=== PATIENT | male | born 1960 | race African-American/Black ===

== ENCOUNTER 2016-11-21 20:56 | Inpatient (IN) | payer OTHER ==
[2016-11-21 22:33] VITALS: BMI 26.4
--- NOTE | 2016-11-21 23:11 | HP ---
CIWA Score - CIWA Score Nausea/Vomitin Muscle Tremors: 4-Moderate,w/Arms Extend Anxiety: 4-Mod. Anxious/Guarded Agitation: 4-Moderately Restless Paroxysmal Sweats: 1-Minimal Palms Moist Orientation: 0-Oriented Tacttile Disturbances: 0-None Auditory Disturbances: 0-None Visual Disturbances: 2-Mild Sensitivity Headache: 0-None Present CIWA-Ar Total Score: 18 Admission ROS BHS - HPI Chief Complaint: SEEKING DETOX FOR ALCOHOLISM Allergies/Adverse Reactions: Allergies Allergy/AdvReac Type Severity Reaction Status Date / Time influenza virus vaccine, Allergy Unknown passed out Verified 03/02/16 14:54 specific [Influenza Virus Vacc,Specific] pneumococcal 23-valent Allergy Unknown passed out Verified 03/02/16 14:54 polysacchari [From Pneumovax 23] haloperidol [From Haldol] AdvReac STIFFNESS Verified 03/02/16 14:54 TURKEY Allergy Severe Itching Uncoded 03/02/16 14:54 FLU SHOT Allergy Unknown passed out Uncoded 03/02/16 14:54 History of Present Illness: 55 [place] MALE WITH ALCOHOLISM ADMITTED FOR DETOX TXMENT. CLIENT IS HYPERTENSIVE. HE IS PRESENTLY ASYMPTOMATIC. HAS BEEN W/O MEDS. SELF REFERRED. STATES LAST DETOX MONTHS AGO. REPORTS WAS SEEN OVERNIGHT IN [facility] [place] FOR ALCOHOLISM AND DEPRESSION. DENIES AND SIGNIFICANT PERIOD OF CLEAN TIME. Exam Limitations: No Limitations - Ebola screening Have you traveled outside of the country in the last 21 days: No (N) Have you had contact with anyone from an Ebola affected area: No Have you been sick,other than usual withdrawal symptoms: No Do you have a fever: No - Review of Systems Constitutional: Chills, Loss of Appetite, Malaise, Night Sweats, Changes in sleep EENT: reports: Dental Problems (EDENTULOUS) Respiratory: reports: No Symptoms reported Cardiac: reports: No Symptoms Reported GI: reports: Diarrhea, Poor Appetite, Poor Fluid Intake, Abdominal cramping : reports: No Symptoms Reported Musculoskeletal: reports: Back Pain Integumentary: reports: No Symptoms Reported Neuro: reports: Seizure (2/2 HEAD TRAUMA) Endocrine: reports: No Symptoms Reported Hematology: reports: No Symptoms Reported Psychiatric: reports: Anxious, Depressed (DENIES SI/HI) Other Systems: Reviewed and Negative Patient History - Patient Medical History Hx Anemia: Yes Hx Asthma: No Hx Chronic Obstructive Pulmonary Disease (COPD): No Hx Cancer: No Hx Cardiac Disorders: No Hx Congestive Heart Failure: No Hx Hypertension: Yes (on medications) Hx Hypercholesterolemia: No Hx Pacemaker: No HX Cerebrovascular Accident: No Hx Seizures: Yes (8 mths ago , head injury) Hx Dementia: No Hx Diabetes: No Hx Gastrointestinal Disorders: No Hx Liver Disease: No Hx Genitourinary Disorders: No Hx Sexually Transmitted Disorders: No Hx Renal Disease (ESRD): No Hx Thyroid Disease: No Hx Human Immunodeficiency Virus (HIV): No Hx Hepatitis C: No Hx Depression: Yes Hx Suicide Attempt: No Hx Bipolar Disorder: Yes Hx Schizophrenia: Yes Other Medical History: DENIES - Patient Surgical History Past Surgical History: Yes Hx Neurologic Surgery: No Hx Cataract Extraction: No Hx Cardiac Surgery: No Hx Lung Surgery: No Hx Breast Surgery: No Hx Breast Biopsy: No Hx Abdominal Surgery: No Hx Appendectomy: No Hx Cholecystectomy: No Hx Genitourinary Surgery: No Hx Section: No Hx Orthopedic Surgery: Yes (R mandible sx in 08/08) Other Surgical History: SURGERY ON MANDIBLE IN 2013 Anesthesia Reaction: No - PPD History Previous Implant?: Yes Documented Results: Negative w/proof Implanted On Prior [facility] Admission?: Yes Date: 09/30/15 Results: 0 mm PPD to be Administered?: Yes - Smoking Cessation Smoking history: Current every day smoker Have you smoked in the past 12 months: Yes Aproximately how many cigarettes per day: 10 Cigars Per Day: 0 Hx Chewing Tobacco Use: No Initiated information on smoking cessation: Yes 'Breaking Loose' booklet given: 11/21/16 - Substance & Tx. History Hx Alcohol Use: Yes Hx Substance Use: No Substance Use Type: Alcohol Hx Substance Use Treatment: No ([facility]) - Substances Abused VODKA Route: Oral Frequency: Daily Amount used: 2 PINTS Age of first use: 11 Date of Last Use: 11/21/16 Family Disease History - Family Disease History Family Disease History: Other: Mother (ETOH DEPENDENT AND STOPPED NOW) Admission Physical Exam S - Vital Signs Vital Signs: Vital Signs - 24 hr 11/21/16 22:22 Temperature 96.3 F L Pulse Rate 71 Respiratory 18 Rate Blood Pressure 182/98 - Physical General Appearance: Yes: Disheveled, Mild Distress, Intoxicated, Tremorous, Anxious HEENTM: Yes: EOMI, Normal ENT Inspection, Normocephalic, Normal Voice, GELY, Pharynx Normal Respiratory: Yes: Chest Non-Tender, Lungs Clear, Normal Breath Sounds, No Respiratory Distress, No Accessory Muscle Use Neck: Yes: No masses,lesions,Nodules, Supple, Trachea in good position Breast: Yes: Breast Exam Deferred Cardiology: Yes: Regular Rhythm, Regular Rate, S1, S2 Abdominal: Yes: Normal Bowel Sounds, Non Tender, Soft, Protuberent Genitourinary: Yes: Within Normal Limits Back: Yes: Normal Inspection Musculoskeletal: Yes: full range of Motion, Gait Steady Extremities: Yes: Normal Range of Motion, Non-Tender, Tremors Neurological: Yes: Fully Oriented, Alert Integumentary: Yes: Dry, Warm Lymphatic: Yes: Within Normal Limits - Diagnostic (1) Alcohol dependence with uncomplicated withdrawal Current Visit: Yes Status: Chronic (2) Nicotine dependence Current Visit: Yes Status: Chronic Qualifiers: Nicotine product type: cigarettes Substance use status: uncomplicated Qualified Code(s): F17.210 - Nicotine dependence, cigarettes, uncomplicated (3) Essential hypertension Current Visit: Yes Status: Chronic (4) Seizure disorder Current Visit: Yes Status: Chronic Cleared for Admission [facility] - Detox or Rehab [facility] Level of Care: Medically Managed Detox Regimen/Protocol: Librium [facility] Breath Alcohol Content Breath Alcohol Content: 0.111 Urine Drug Screen - Results Drug Screen Negative: No Urine Drug Screen Results: BAR-Barbiturates, BZO-Benzodiazepines
[2016-11-21] MEDS ORDERED: chlordiazePOXIDE HCL 25 MG CAPSULE PO PRN (23:21)
[2016-11-21] MEDS ORDERED: guaiFENesin/D-METHORPHAN HB 10 ML UNIT-DOSE CUPS PO PRN (23:21)
[2016-11-21] MEDS ORDERED: NICOTINE POLACRILEX 2 MG GUM BC PRN (23:21)
[2016-11-21] MEDS ORDERED: P-EPHED 60MG/TRIPROLIDI 2.5MG TABLET PO PRN (23:21)
[2016-11-21] MEDS ORDERED: MENTHOL/PHENOL 1 EACH UD MM PRN (23:21)
[2016-11-21] MEDS ORDERED: MAGNESIUM HYDROX 2400MG/30ML ORAL SUSPENSION 30 ML CUP PO PRN (23:21)
[2016-11-21] MEDS ORDERED: diphenhydrAMINE HCL 50 MG CAPSULE PO PRN (23:21)
[2016-11-21] MEDS ORDERED: IBUPROFEN 400 MG TABLET (FP) PO PRN (23:21)
[2016-11-21] MEDS ORDERED: ACETAMINOPHEN 325 MG TABLET (FP) PO PRN (23:21)
[2016-11-21] MEDS ORDERED: MAG HYDROX/AL HYDROX/SIMETH 30 ML UNIT-DOSE CUP PO PRN (23:21)
[2016-11-21] MEDS ORDERED: hydrOXYzine PAMOATE 50 MG CAPSULE (FP) PO PRN (23:21)
[2016-11-21] MEDS ORDERED: MAGNESIUM CITRATE 300 ML BOTTLE PO PRN (23:21)
[2016-11-21] MEDS ORDERED: LOPERAMIDE HCL 2 MG CAPSULE PO PRN (23:21)
[2016-11-21] MEDS ORDERED: amLODIPine BESYLATE 10 MG TABLET (FP) PO SCH (23:30)
[2016-11-21] MEDS: chlordiazePOXIDE HCL 25 MG CAPSULE PO SCH (23:52)
[2016-11-22] MEDS: chlordiazePOXIDE HCL 25 MG CAPSULE PO SCH (05:54)
[2016-11-22] MEDS ORDERED: PHENYTOIN NA EXTENDED 100 MG CAPSULE (FP) PO SCH (06:00)
[2016-11-22 06:34] VITALS: PULSE 60
[2016-11-22 09:31] VITALS: BP 147/86; TEMP 97.8
[2016-11-22] MEDS ORDERED: PRENATAL VITAMINS W/ FOLIC ACID TABLET (FP) PO SCH (10:00)
[2016-11-22 10:16] LABS: MCH 29.7 pg (25.7-33.7); MCHC 33.3 g/dl (32.0-35.9); MEAN CELL VOLUME 89.3 fl (80-96); MEAN PLT VOLUME 9.9 fl (7.5-11.1); PLATELET COUNT 188 K/MM3 (134-434); RDW 16.3 % (11.9-15.9); WHITE BLOOD COUNT 4.7 K/mm3 (4.0-10.0)
[2016-11-22 10:43] LABS: ALBUMIN 3.5 g/dl (3.4-5.0); ALK PHOS 74 U/L (45-117); ANION GAP 7 (8-16); BILIRUBIN,TOTAL 0.3 mg/dL (0.2-1.0); CALCIUM 8.7 mg/dL (8.5-10.1); CO2 27 mmol/L (21-32); COCKROFT - GAULT 105.64; GLUCOSE,RANDOM 90 mg/dL (74-106); SGOT/AST 99 U/L (15-37); SGPT/ALT 94 U/L (12-78); TOT PROT 7.1 g/dl (6.4-8.2)
--- NOTE | 2016-11-22 10:48 | CONSULT ---
[facility] Psychiatric Consult - Data Date of interview: 11/22/16 Admission source: [facility] Identifying data: Not available for psychiatric interview.Left unit prior to consult.See staff's notes for details.
--- NOTE | 2016-11-22 11:57 | DS ---
[facility] Detox Discharge Summary Admission Date: 11/21/16 Discharge Date: 11/22/16 - History Present History: Alcohol Dependence Pertinent Past History: HTN Seizure disorder - Physical Exam Results Vital Signs: Vital Signs Temperature 97.8 F 11/22/16 09:26 Pulse Rate 60 11/22/16 09:26 Respiratory Rate 18 11/22/16 09:26 Blood Pressure 147/86 11/22/16 09:26 O2 Sat by Pulse Oximetry (%) Pertinent Admission Physical Exam Findings: Withdrawal sx. Laboratory Results - last 24 hr 11/22/16 11/22/16 07:00 07:00 WBC 4.7 D RBC 3.85 L Hgb 11.4 L Hct 34.4 L MCV 89.3 MCHC 33.3 RDW 16.3 H Plt Count 188 MPV 9.9 D Sodium 140 Potassium 3.9 Chloride 106 Carbon Dioxide 27 Anion Gap 7 L BUN 21 H D Creatinine 1.0 Creat Clearance w eGFR > 60 Random Glucose 90 Calcium 8.7 Total Bilirubin 0.3 D AST 99 H D ALT 94 H D Alkaline Phosphatase 74 Total Protein 7.1 Albumin 3.5 labs noted - Treatment Patient has Accepted a Rehab Referral to: [facility] - Medication Discharge Medications: Ambulatory Orders Phenytoin Na Extended [Dilantin -] 100 mg PO TID 08/03/14 Amlodipine Besylate [Norvasc -] 10 mg PO DAILY 03/25/15 Olanzapine [Zyprexa] 20 mg PO BID 03/25/15 Trazodone HCl [Desyrel -] 300 mg PO HS 03/02/16 Trazodone HCl 100 mg PO HS #30 tablet 03/03/16 - Diagnosis (1) Alcohol dependence with uncomplicated withdrawal Current Visit: Yes Status: Chronic (2) Essential hypertension Current Visit: Yes Status: Chronic (3) Nicotine dependence Current Visit: Yes Status: Chronic Qualifiers: Nicotine product type: cigarettes Substance use status: uncomplicated Qualified Code(s): F17.210 - Nicotine dependence, cigarettes, uncomplicated (4) Seizure disorder Current Visit: Yes Status: Chronic (5) Paranoid schizophrenia Current Visit: Yes Status: Chronic - AMA Did Patient Leave Against Medical Advice: Yes (This pt. has signrd out AMA most of the time)
--- NOTE | 2016-11-22 11:59 | EKG ---
Test Reason : Blood Pressure : / mmHG Vent. Rate : 055 BPM Atrial Rate : 055 BPM P-R Int : 160 ms QRS Dur : 098 ms QT Int : 416 ms P-R-T Axes : 069 065 065 degrees QTc Int : 397 ms SINUS BRADYCARDIA MODERATE VOLTAGE CRITERIA FOR LVH, MAY BE NORMAL VARIANT BORDERLINE ECG NO PREVIOUS ECGS AVAILABLE Confirmed by MACKENZIE HENRY MD ([id number]) on 11/22/2016 11:58:46 AM Referred By: Confirmed By:MACKENZIE HENRY MD
[2016-11-22] MEDS ORDERED: THIAMINE HCL 100 MG TABLET (FP) PO SCH (22:00)
[2016-11-22] MEDS ORDERED: chlordiazePOXIDE HCL 25 MG CAPSULE PO SCH (23:00)
[2016-11-23] MEDS ORDERED: chlordiazePOXIDE 5 MG CAPSULE PO SCH (23:00)
[2016-11-24] MEDS ORDERED: chlordiazePOXIDE HCL 10 MG CAPSULE PO SCH (23:00)
== END 2016-11-22 10:20 | disposition left against medical advice (07) | DRG 894 ==
LOC: YASAS 20:56 → Y3N 23:00
PROVIDERS: ADMIT Internal Medicine; ATTEND Internal Medicine
PROC: HZ2ZZZZ Detoxification Services for Substance Abuse Treatment (ICD-10-PCS; principal; 2016-11-21)
DX: F10.230 Alcohol dependence with withdrawal, uncomplicated (principal); F20.0 Paranoid schizophrenia; F17.210 Nicotine dependence, cigarettes, uncomplicated; I10 Essential (primary) hypertension; G40.909 Epilepsy, unspecified, not intractable, without status epilepticus; D64.9 Anemia, unspecified
CPT/HCPCS: 36415; 80053; 80185; 85027; 86593; 86803; 87522; 93005; 93010

== ENCOUNTER 2017-01-18 16:26 | Inpatient (IN) | payer OTHER ==
[2017-01-18 17:02] VITALS: BMI 25.0
--- NOTE | 2017-01-18 21:25 | HP ---
CIWA Score - CIWA Score Nausea/Vomitin-Mild Nausea/No Vomiting Muscle Tremors: 3 Anxiety: 3 Agitation: 3 Paroxysmal Sweats: 2 Orientation: 1-Uncertain about Date Tacttile Disturbances: 0-None Auditory Disturbances: 0-None Visual Disturbances: 1-Very Mild Sensitivity Headache: 1-Very Mild CIWA-Ar Total Score: 15 Admission ROS BHS - HPI Chief Complaint: WITHDRAWAL SYMPTOMS Allergies/Adverse Reactions: Allergies Allergy/AdvReac Type Severity Reaction Status Date / Time influenza virus vaccine, Allergy Unknown passed out Verified 01/18/17 18:12 specific [Influenza Virus Vacc,Specific] pneumococcal 23-valent Allergy Unknown passed out Verified 01/18/17 18:12 polysacchari [From Pneumovax 23] haloperidol [From Haldol] AdvReac STIFFNESS Verified 01/18/17 18:12 TURKEY Allergy Severe Itching Uncoded 01/18/17 18:12 FLU SHOT Allergy Unknown passed out Uncoded 01/18/17 18:12 History of Present Illness: 56 y.o. man with an extensive history of alcohol dependence is here seeking detox. He was last here in 10/2016 but left AMA. He reports he does not have a significant period of sobriety. Exam Limitations: Intoxication - Ebola screening Have you traveled outside of the country in the last 21 days: No Have you been sick,other than usual withdrawal symptoms: Yes - Review of Systems Constitutional: Loss of Appetite, Changes in sleep, Unintentional Wgt. Loss EENT: reports: Blurred Vision Respiratory: reports: Shortness of Breath Cardiac: reports: No Symptoms Reported GI: reports: Diarrhea, Poor Appetite, Abdominal cramping : reports: No Symptoms Reported Musculoskeletal: reports: Back Pain, Joint Pain (Left knee) Integumentary: reports: No Symptoms Reported Neuro: reports: Seizure (Last sz was in 2009; reports d/t cerebral trauma), Tremors Endocrine: reports: No Symptoms Reported Hematology: reports: Anemia (ADA) Psychiatric: reports: Depressed, other (Insomnia) Other Systems: Reviewed and Negative Patient History - Patient Medical History Hx Anemia: Yes Hx Asthma: No Hx Chronic Obstructive Pulmonary Disease (COPD): No Hx Cancer: No Hx Cardiac Disorders: No Hx Congestive Heart Failure: No Hx Hypertension: Yes (on medications) Hx Hypercholesterolemia: No Hx Pacemaker: No HX Cerebrovascular Accident: No Hx Seizures: Yes (7 years ago , head injury) Hx Dementia: No Hx Diabetes: No Hx Gastrointestinal Disorders: No Hx Liver Disease: No Hx Genitourinary Disorders: No Hx Sexually Transmitted Disorders: No Hx Renal Disease (ESRD): No Hx Thyroid Disease: No Hx Human Immunodeficiency Virus (HIV): No Hx Hepatitis C: No Hx Depression: Yes Hx Suicide Attempt: No Hx Bipolar Disorder: Yes Hx Schizophrenia: Yes - Patient Surgical History Past Surgical History: Yes Hx Neurologic Surgery: No Hx Cataract Extraction: No Hx Cardiac Surgery: No Hx Lung Surgery: No Hx Breast Surgery: No Hx Breast Biopsy: No Hx Abdominal Surgery: No Hx Appendectomy: No Hx Cholecystectomy: No Hx Genitourinary Surgery: No Hx Section: No Hx Orthopedic Surgery: Yes (R mandible sx in 08/08) Other Surgical History: SURGERY ON MANDIBLE IN 2013 Anesthesia Reaction: No - PPD History Previous Implant?: Yes Documented Results: Negative w/proof Date: 11/23/16 Results: 0 mm PPD to be Administered?: No - Reproductive History Patient is a Female of Child Bearing Age (11 -55 yrs old): No - Smoking Cessation Smoking history: Current every day smoker Have you smoked in the past 12 months: Yes Aproximately how many cigarettes per day: 10 Cigars Per Day: 0 Hx Chewing Tobacco Use: No Initiated information on smoking cessation: No 'Breaking Loose' booklet given: 01/18/17 - Substance & Tx. History Hx Alcohol Use: Yes Hx Substance Use: No Substance Use Type: Alcohol Hx Substance Use Treatment: Yes (Last detox was here in 10/2016; left AMA after 1 day. No rehab ever) - Substances Abused Alcohol Route: Oral Frequency: Daily Amount used: LIQUOR- 4 PINTS Age of first use: 11 Date of Last Use: 01/18/17 Family Disease History - Family Disease History Family Disease History: Other: Mother (ETOH DEPENDENT AND STOPPED NOW) Admission Physical Exam BHS - Vital Signs Vital Signs: Vital Signs - 24 hr 01/18/17 16:54 Temperature 96.9 F L Pulse Rate 79 Respiratory 18 Rate Blood Pressure 157/76 - Physical General Appearance: Yes: Disheveled, Alcohol on Breath, Tremorous, Sweating, Anxious HEENTM: Yes: Hearing grossly Normal, Normal ENT Inspection, Normocephalic, Normal Voice Respiratory: Yes: Chest Non-Tender, Lungs Clear, Normal Breath Sounds Breast: Yes: Breast Exam Deferred Cardiology: Yes: Regular Rhythm, Regular Rate Abdominal: Yes: Flat, Soft Genitourinary: Yes: Other (No complaints reported) Back: Yes: Normal Inspection Musculoskeletal: Yes: Back pain Extremities: Yes: Normal Capillary Refill, Normal Inspection, Normal Range of Motion Neurological: Yes: Alert Integumentary: Yes: Normal Color, Dry, Warm Lymphatic: Yes: Within Normal Limits - Diagnostic (1) Alcohol dependence with uncomplicated withdrawal Current Visit: Yes Status: Chronic (2) Essential hypertension Current Visit: Yes Status: Chronic (3) Nicotine dependence Current Visit: Yes Status: Chronic Qualifiers: Nicotine product type: cigarettes Substance use status: uncomplicated Qualified Code(s): F17.210 - Nicotine dependence, cigarettes, uncomplicated (4) Seizure disorder Current Visit: No Status: Chronic (5) low back pain lumbar herniated disc Current Visit: Yes Status: Chronic (6) Anemia Current Visit: Yes Status: Suspected (7) Osteoarthritis Current Visit: Yes Status: Chronic Cleared for Admission [facility] - Detox or Rehab [facility] Level of Care: Medically Managed Detox Regimen/Protocol: Librium [facility] Breath Alcohol Content Breath Alcohol Content: 0.167 Urine Drug Screen - Results Drug Screen Negative: No Urine Drug Screen Results: BAR-Barbiturates, BZO-Benzodiazepines
[2017-01-18] MEDS ORDERED: chlordiazePOXIDE HCL 25 MG CAPSULE PO PRN (21:31)
[2017-01-18] MEDS ORDERED: hydrOXYzine PAMOATE 50 MG CAPSULE (FP) PO PRN (21:31)
[2017-01-18] MEDS ORDERED: LOPERAMIDE HCL 2 MG CAPSULE PO PRN (21:31)
[2017-01-18] MEDS ORDERED: MAGNESIUM CITRATE 300 ML BOTTLE PO PRN (21:31)
[2017-01-18] MEDS ORDERED: diphenhydrAMINE HCL 50 MG CAPSULE PO PRN (21:31)
[2017-01-18] MEDS ORDERED: MAG HYDROX/AL HYDROX/SIMETH 30 ML UNIT-DOSE CUP PO PRN (21:31)
[2017-01-18] MEDS ORDERED: chlordiazePOXIDE HCL 25 MG CAPSULE PO ONE (21:31)
[2017-01-18] MEDS ORDERED: MAGNESIUM HYDROX 2400MG/30ML ORAL SUSPENSION 30 ML CUP PO PRN (21:31)
[2017-01-18] MEDS ORDERED: P-EPHED 60MG/TRIPROLIDI 2.5MG TABLET PO PRN (21:31)
[2017-01-18] MEDS ORDERED: ACETAMINOPHEN 325 MG TABLET (FP) PO PRN (21:31)
[2017-01-18] MEDS ORDERED: IBUPROFEN 400 MG TABLET (FP) PO PRN (21:31)
[2017-01-18] MEDS ORDERED: guaiFENesin/D-METHORPHAN HB 10 ML UNIT-DOSE CUPS PO PRN (21:31)
[2017-01-18] MEDS ORDERED: MENTHOL/PHENOL 1 EACH UD MM PRN (21:31)
[2017-01-18] MEDS: chlordiazePOXIDE HCL 25 MG CAPSULE PO SCH (22:03)
[2017-01-18] MEDS: THIAMINE HCL 100 MG TABLET (FP) PO SCH (22:03)
[2017-01-18 23:03] LABS: URINE APPEARANCE CLEAR; URINE BILIRUBIN NEGATIVE (NEGATIVE); URINE BLOOD NEGATIVE (NEGATIVE); URINE COLOR STRAW; URINE GLUCOSE (UA) NEGATIVE (NEGATIVE); URINE KETONE NEGATIVE (NEGATIVE); URINE LEUK ESTERASE NEGATIVE (NEGATIVE); URINE NITRITE NEGATIVE (NEGATIVE); URINE PROTEIN NEGATIVE (NEGATIVE); URINE UROBILINOGEN NEGATIVE mg/dL (0.2-1.0)
[2017-01-19] MEDS: chlordiazePOXIDE HCL 25 MG CAPSULE PO SCH ×4 (05:51→22:12)
--- NOTE | 2017-01-19 09:24 | EKG ---
Test Reason : Blood Pressure : / mmHG Vent. Rate : 057 BPM Atrial Rate : 057 BPM P-R Int : 154 ms QRS Dur : 084 ms QT Int : 394 ms P-R-T Axes : 063 066 069 degrees QTc Int : 383 ms SINUS BRADYCARDIA MODERATE VOLTAGE CRITERIA FOR LVH, MAY BE NORMAL VARIANT CANNOT RULE OUT SEPTAL INFARCT , AGE UNDETERMINED Confirmed by REBECCA ELLIS, KARRI ([id number]) on 01/19/2017 9:23:50 AM Referred By: Peter Young Confirmed By:KARRI FERNANDEZ MD
--- NOTE | 2017-01-19 09:33 | PN ---
Psychiatric Progress Note Vital Signs: Vital Signs Period Temp Pulse Resp BP Sys/Samuel Pulse Ox Last 24 Hr 96.1 F-98 F 58-79 18-18 112-157/68-81 Date of Session: 01/19/17 Chief Complaint:: BHS Current Medications: Active Medications Generic Name Dose Route Start Last Admin Trade Name Freq PRN Reason Stop Dose Admin Acetaminophen 650 mg 01/18/17 21:31 Tylenol - PO Q4H PRN FEVER OR PAIN Al Hydroxide/Mg Hydroxide 30 ml 01/18/17 21:31 Mylanta Oral Suspension - PO Q6H PRN DYSPEPSIA Amlodipine Besylate 10 mg 01/19/17 10:00 Norvasc - PO DAILY JUAN M Chlordiazepoxide HCl 10 mg 01/21/17 23:00 Librium - PO 01/22/17 17:01 [id number] JUAN M Chlordiazepoxide HCl 25 mg 01/18/17 21:31 Librium - PO 01/21/17 21:30 Q4H PRN WITHDRAWAL(CONT SUBST) Chlordiazepoxide HCl 50 mg 01/18/17 23:00 01/19/17 05:51 Librium - PO 01/19/17 17:01 50 mg [id number] JUAN M Administration Chlordiazepoxide HCl 25 mg 01/19/17 23:00 Librium - PO 01/20/17 17:01 [id number] JUAN M Chlordiazepoxide HCl 15 mg 01/20/17 23:00 Librium - PO 01/21/17 17:01 [id number] JUAN M Diphenhydramine HCl 50 mg 01/18/17 21:31 01/18/17 22:03 Benadryl - PO 50 mg HSMR1 PRN Administration INSOMNIA Eucalyptus/Menthol/Phenol/Sorbitol 1 each 01/18/17 21:31 Cepastat Lozenge - MM Q4H PRN SORE THROAT Guaifenesin 10 ml 01/18/17 21:31 Robitussin Dm - PO Q6H PRN COUGH Hydroxyzine Pamoate 50 mg 01/18/17 21:31 Vistaril - PO Q4H PRN AGITATION Ibuprofen 400 mg 01/18/17 21:31 Motrin - PO Q6H PRN SEVERE PAIN Loperamide HCl 4 mg 01/18/17 21:31 Imodium - PO Q6H PRN DIARRHEA Magnesium Citrate 300 ml 01/18/17 21:31 Citroma - PO Q48H PRN CONSTIPATION Magnesium Hydroxide 30 ml 01/18/17 21:31 Milk Of Magnesia - PO DAILY PRN CONSTIPATION Nicotine 14 mg 01/19/17 10:00 Nicoderm Patch - TD DAILY JUAN M Multivit/Folic Acid/Iron 1 tab 01/19/17 10:00 Vitamins (Sjr) - PO DAILY JUAN M Pseudoephedrine/Triprolidine 1 combo 01/18/17 21:31 Actifed - PO TID PRN NASAL CONGESTION Thiamine HCl 100 mg 01/18/17 22:00 01/18/17 22:03 Vitamin B1 - PO 100 mg HS JUAN M Administration
--- NOTE | 2017-01-19 09:40 | CONSULT ---
[facility] Psychiatric Consult - Data Date of interview: 01/19/17 Admission source: [facility] Identifying data: Mr Short is a 56 years old single Black male, unemployed on SSD, domiciled seeking detox treatment for alcohol Substance Abuse History: Reports history of alcohol abuse. Reports that he started drinking alcohol at age 11, consumes 4 pints of liquor daily. Last drink on 01/18/17 Medical History: Significant for a history of anemia, hypertension, low back pain, seizure disorder due to head injury and past surgery for fracture of right mandiblein 2013. Smokes 10 cigarettes daily Psychiatric History: Reports being diagnosed with Paranoid Schzophrenia at age 11 and has had multiple psychiatric admissions to [facility], [facility] and [facility]. Reports that up to 3 months ago, he was seeing a psychiatrist in [place] and was prescibed Zyprexa 20 mg po BID and Trazadone 300 mg po HS. Claims that he had 3 months supply and took medications last yesterday morning. At present, reports feeling fine though he is somewhat irritable. Denies experiencing psychotic symptoms, suicidal, homicidal ideations. Physical/Sexual Abuse/Trauma History: Denies history of emotional, physical or sexual abue as well as DV relationship. No service Additional Comment: Reports history of one misdemeanor arrest for drinking in public Mental Status Exam - Mental Status Exam Alert and Oriented to: Time, Place, Person Cognitive Function: Fair Patient Appearance: Well Groomed Mood: Hopeful, Euthymic Patient Behavior: Cooperative Speech Pattern: Clear Voice Loudness: Normal Thought Process: Intact, Goal Oriented Hallucinations: Denies Suicidal Ideation: Denies Homicidal Ideation: Denies Insight/Judgement: Fair Sleep: Poorly Appetite: Fair Muscle strength/Tone: Normal Gait/Station: Normal Psychiatric Findings - Problem List ([place] 1, 2,3) (1) Paranoid schizophrenia Current Visit: No Status: Chronic (2) Alcohol dependence with uncomplicated withdrawal Current Visit: Yes Status: Chronic (3) Nicotine dependence Current Visit: Yes Status: Chronic Qualifiers: Nicotine product type: cigarettes Substance use status: uncomplicated Qualified Code(s): F17.210 - Nicotine dependence, cigarettes, uncomplicated (4) Essential hypertension Current Visit: Yes Status: Chronic (5) Osteoarthritis Current Visit: Yes Status: Chronic (6) low back pain lumbar herniated disc Current Visit: Yes Status: Chronic (7) Seizure disorder Current Visit: No Status: Chronic - Initial Treatment Plan Initial Treatment Plan: 1) Continue Zyprexa 20 mg po HS and Trazadone 150 mg po HS. 2) Continue inpatient detoxification
[2017-01-19] MEDS ORDERED: OLANZapine 7.5 MG TABLET PO SCH (10:00)
[2017-01-19] MEDS: PRENATAL VITAMINS W/ FOLIC ACID TABLET (FP) PO SCH (10:13)
[2017-01-19] MEDS: NICOTINE 14 MG/24 HOURS TOPICAL PATCH TD SCH (10:13)
[2017-01-19] MEDS: amLODIPine BESYLATE 10 MG TABLET (FP) PO SCH (10:15)
[2017-01-19] MEDS ORDERED: PHENYTOIN NA EXTENDED 100 MG CAPSULE (FP) PO ONE (10:16)
[2017-01-19 10:21] LABS: MCH 30.3 pg (25.7-33.7); MCHC 32.6 g/dl (32.0-35.9); MEAN CELL VOLUME 92.9 fl (80-96); MEAN PLT VOLUME 10.5 fl (7.5-11.1); PLATELET COUNT 175 K/MM3 (134-434); RDW 17.2 % (11.9-15.9); WHITE BLOOD COUNT 4.6 K/mm3 (4.0-10.0)
[2017-01-19 10:22] LABS: ALBUMIN 3.4 g/dl (3.4-5.0); ANION GAP 10 (8-16); CALCIUM 8.8 mg/dL (8.5-10.1); CO2 27 mmol/L (21-32); GLUCOSE,RANDOM 79 mg/dL (74-106)
[2017-01-19 10:25] LABS: ALK PHOS 76 U/L (45-117); BILIRUBIN,TOTAL 0.4 mg/dL (0.2-1.0); SGOT/AST 69 U/L (15-37); SGPT/ALT 80 U/L (12-78); TOT PROT 7.1 g/dl (6.4-8.2)
--- NOTE | 2017-01-19 10:37 | PN ---
[facility] CIWA - CIWA Score Nausea/Vomitin-No Nausea/No Vomiting Muscle Tremors: 4-Moderate,w/Arms Extend Anxiety: 4-Mod. Anxious/Guarded Agitation: 4-Moderately Restless Paroxysmal Sweats: 1-Minimal Palms Moist Orientation: 0-Oriented Tacttile Disturbances: 3-Moderate Itch/Numb/Burn Auditory Disturbances: 0-None Visual Disturbances: 0-None Headache: 0-None Present CIWA-Ar Total Score: 16 S Progress Note (SOAP) Subjective: ANXIETY,SWEATS,TREMORS,INTERMITTENT SLEEP. Objective: 01/19/17 10:37 Vital Signs Temperature 96.1 F L 01/19/17 09:09 Pulse Rate 65 01/19/17 09:09 Respiratory Rate 18 01/19/17 09:09 Blood Pressure 112/68 01/19/17 09:09 O2 Sat by Pulse Oximetry (%) Laboratory Last Values WBC 4.6 K/mm3 (4.0-10.0) 01/19/17 07:00 RBC 4.04 M/mm3 (4.00-5.60) 01/19/17 07:00 Hgb 12.2 GM/dL (11.7-16.9) 01/19/17 07:00 Hct 37.5 % (35.4-49) 01/19/17 07:00 MCV 92.9 fl (80-96) 01/19/17 07:00 MCH 30.3 pg (25.7-33.7) 01/19/17 07:00 MCHC 32.6 g/dl (32.0-35.9) 01/19/17 07:00 RDW 17.2 % (11.9-15.9) H 01/19/17 07:00 Plt Count 175 K/MM3 (134-434) 01/19/17 07:00 MPV 10.5 fl (7.5-11.1) 01/19/17 07:00 Sodium 141 mmol/L (136-145) 01/19/17 07:00 Potassium 4.3 mmol/L (3.5-5.1) 01/19/17 07:00 Chloride 104 mmol/L (98-107) 01/19/17 07:00 Carbon Dioxide 27 mmol/L (21-32) 01/19/17 07:00 Anion Gap 10 (8-16) 01/19/17 07:00 BUN 19 mg/dL (7-18) H 01/19/17 07:00 Creatinine 1.0 mg/dL (0.7-1.3) 01/19/17 07:00 Creat Clearance w eGFR > 60 (>60) 01/19/17 07:00 Random Glucose 79 mg/dL (74-106) 01/19/17 07:00 Calcium 8.8 mg/dL (8.5-10.1) 01/19/17 07:00 Total Bilirubin 0.4 mg/dL (0.2-1.0) D 01/19/17 07:00 AST 69 U/L (15-37) H D 01/19/17 07:00 ALT 80 U/L (12-78) H 01/19/17 07:00 Alkaline Phosphatase 76 U/L (45-117) 01/19/17 07:00 Total Protein 7.1 g/dl (6.4-8.2) 01/19/17 07:00 Albumin 3.4 g/dl (3.4-5.0) 01/19/17 07:00 Urine Color Straw 01/18/17 21:30 Urine Appearance Clear 01/18/17 21:30 Urine pH 6.0 (5.0-8.0) 01/18/17 21:30 Urine Protein Negative (NEGATIVE) 01/18/17 21:30 Urine Glucose (UA) Negative (NEGATIVE) 01/18/17 21:30 Urine Ketones Negative (NEGATIVE) 01/18/17 21:30 Urine Blood Negative (NEGATIVE) 01/18/17 21:30 Urine Nitrite Negative (NEGATIVE) 01/18/17 21:30 Urine Bilirubin Negative (NEGATIVE) 01/18/17 21:30 Urine Urobilinogen Negative mg/dL (0.2-1.0) 01/18/17 21:30 Ur Leukocyte Esterase Negative (NEGATIVE) 01/18/17 21:30 Assessment: 01/19/17 10:38 WITHDRAWAL SX Plan: CONTINUE DETOX
[2017-01-19] MEDS: PHENYTOIN NA EXTENDED 100 MG CAPSULE (FP) PO SCH ×2 (13:02→22:12)
[2017-01-19] MEDS ORDERED: OLANZapine 10 MG TABLET PO SCH (22:00)
[2017-01-19] MEDS ORDERED: traZODone HCL 150 MG TABLET PO SCH (22:00)
[2017-01-19] MEDS ORDERED: traZODone HCL 50 MG TABLET (FP) PO SCH (22:00)
[2017-01-19] MEDS: THIAMINE HCL 100 MG TABLET (FP) PO SCH (22:12)
[2017-01-20] MEDS: chlordiazePOXIDE HCL 25 MG CAPSULE PO SCH ×2 (05:36→10:10)
[2017-01-20] MEDS: PHENYTOIN NA EXTENDED 100 MG CAPSULE (FP) PO SCH ×2 (05:36→13:49)
[2017-01-20] MEDS: PRENATAL VITAMINS W/ FOLIC ACID TABLET (FP) PO SCH (10:10)
[2017-01-20] MEDS: NICOTINE 14 MG/24 HOURS TOPICAL PATCH TD SCH (10:10)
[2017-01-20] MEDS: amLODIPine BESYLATE 10 MG TABLET (FP) PO SCH (10:10)
--- NOTE | 2017-01-20 12:37 | PN ---
[facility] CIWA - CIWA Score Nausea/Vomitin-No Nausea/No Vomiting Muscle Tremors: 2 Anxiety: 4-Mod. Anxious/Guarded Agitation: 3 Paroxysmal Sweats: 2 Orientation: 0-Oriented Tacttile Disturbances: 2-Mild Itch/Numbness/Burn Auditory Disturbances: 0-None Visual Disturbances: 1-Very Mild Sensitivity Headache: 0-None Present CIWA-Ar Total Score: 14 S Progress Note (SOAP) Subjective: Diarrhea, Lower Back Ache. Objective: PT. A & O X 3. NO ACUTE DISTRESS. 01/20/17 12:34 Vital Signs Temperature 97 F L 01/20/17 09:53 Pulse Rate 82 01/20/17 09:53 Respiratory Rate 20 01/20/17 09:53 Blood Pressure 128/79 01/20/17 09:53 O2 Sat by Pulse Oximetry (%) Laboratory Tests 01/18/17 01/19/17 01/19/17 21:30 07:00 07:00 WBC 4.6 RBC 4.04 Hgb 12.2 Hct 37.5 MCV 92.9 MCH 30.3 MCHC 32.6 RDW 17.2 H Plt Count 175 MPV 10.5 Sodium 141 Potassium 4.3 Chloride 104 Carbon Dioxide 27 Anion Gap 10 BUN 19 H Creatinine 1.0 Creat Clearance w eGFR > 60 Random Glucose 79 Calcium 8.8 Total Bilirubin 0.4 D AST 69 H D ALT 80 H Alkaline Phosphatase 76 Total Protein 7.1 Albumin 3.4 Urine Color Straw Urine Appearance Clear Urine pH 6.0 Ur Specific [place] <= 1.005 Urine Protein Negative Urine Glucose (UA) Negative Urine Ketones Negative Urine Blood Negative Urine Nitrite Negative Urine Bilirubin Negative Urine Urobilinogen Negative Ur Leukocyte Esterase Negative Phenytoin RPR Titer 01/19/17 01/19/17 07:00 07:00 WBC RBC Hgb Hct MCV MCH MCHC RDW Plt Count MPV Sodium Potassium Chloride Carbon Dioxide Anion Gap BUN Creatinine Creat Clearance w eGFR Random Glucose Calcium Total Bilirubin AST ALT Alkaline Phosphatase Total Protein Albumin Urine Color Urine Appearance Urine pH Ur Specific [place] Urine Protein Urine Glucose (UA) Urine Ketones Urine Blood Urine Nitrite Urine Bilirubin Urine Urobilinogen Ur Leukocyte Esterase Phenytoin 7.6 L D RPR Titer Nonreactive LABS NOTED. Assessment: 01/20/17 12:34 WITHDRAWAL SYMPTOMS. Plan: CONTINUE DETOX. REPEAT CHECK OF DILANTIN LEVEL 01/21/17 AM.
[2017-01-20 18:31] VITALS: BP 127/78; PULSE 51; TEMP 97.9
--- NOTE | 2017-01-20 19:36 | DS ---
[facility] Detox Discharge Summary Admission Date: 01/18/17 Discharge Date: 01/20/17 - History Present History: Alcohol Dependence Pertinent Past History: HTN Paranoid Schizophrenia Varicose Veins Seizure disorder - Physical Exam Results Vital Signs: Vital Signs Temperature 97.9 F 01/20/17 18:30 Pulse Rate 51 L 01/20/17 18:30 Respiratory Rate 18 01/20/17 18:30 Blood Pressure 127/78 01/20/17 18:30 O2 Sat by Pulse Oximetry (%) Pertinent Admission Physical Exam Findings: Withdrawal sx. Laboratory Last Values WBC 4.6 K/mm3 (4.0-10.0) 01/19/17 07:00 RBC 4.04 M/mm3 (4.00-5.60) 01/19/17 07:00 Hgb 12.2 GM/dL (11.7-16.9) 01/19/17 07:00 Hct 37.5 % (35.4-49) 01/19/17 07:00 MCV 92.9 fl (80-96) 01/19/17 07:00 MCH 30.3 pg (25.7-33.7) 01/19/17 07:00 MCHC 32.6 g/dl (32.0-35.9) 01/19/17 07:00 RDW 17.2 % (11.9-15.9) H 01/19/17 07:00 Plt Count 175 K/MM3 (134-434) 01/19/17 07:00 MPV 10.5 fl (7.5-11.1) 01/19/17 07:00 Sodium 141 mmol/L (136-145) 01/19/17 07:00 Potassium 4.3 mmol/L (3.5-5.1) 01/19/17 07:00 Chloride 104 mmol/L (98-107) 01/19/17 07:00 Carbon Dioxide 27 mmol/L (21-32) 01/19/17 07:00 Anion Gap 10 (8-16) 01/19/17 07:00 BUN 19 mg/dL (7-18) H 01/19/17 07:00 Creatinine 1.0 mg/dL (0.7-1.3) 01/19/17 07:00 Creat Clearance w eGFR > 60 (>60) 01/19/17 07:00 Random Glucose 79 mg/dL (74-106) 01/19/17 07:00 Calcium 8.8 mg/dL (8.5-10.1) 01/19/17 07:00 Total Bilirubin 0.4 mg/dL (0.2-1.0) D 01/19/17 07:00 AST 69 U/L (15-37) H D 01/19/17 07:00 ALT 80 U/L (12-78) H 01/19/17 07:00 Alkaline Phosphatase 76 U/L (45-117) 01/19/17 07:00 Total Protein 7.1 g/dl (6.4-8.2) 01/19/17 07:00 Albumin 3.4 g/dl (3.4-5.0) 01/19/17 07:00 Urine Color Straw 01/18/17 21:30 Urine Appearance Clear 01/18/17 21:30 Urine pH 6.0 (5.0-8.0) 01/18/17 21:30 Ur Specific [place] <= 1.005 (1.005-1.025) 01/18/17 21:30 Urine Protein Negative (NEGATIVE) 01/18/17 21:30 Urine Glucose (UA) Negative (NEGATIVE) 01/18/17 21:30 Urine Ketones Negative (NEGATIVE) 01/18/17 21:30 Urine Blood Negative (NEGATIVE) 01/18/17 21:30 Urine Nitrite Negative (NEGATIVE) 01/18/17 21:30 Urine Bilirubin Negative (NEGATIVE) 01/18/17 21:30 Urine Urobilinogen Negative mg/dL (0.2-1.0) 01/18/17 21:30 Ur Leukocyte Esterase Negative (NEGATIVE) 01/18/17 21:30 Phenytoin 7.6 ug/ml (10.0-20.0) L D 01/19/17 07:00 RPR Titer Nonreactive (NONREACTIVE) 01/19/17 07:00 labs noted - Treatment Patient has Accepted a Rehab Referral to: [facility] - Medication Discharge Medications: Ambulatory Orders Phenytoin Na Extended [Dilantin -] 100 mg PO TID 08/03/14 Amlodipine Besylate [Norvasc -] 10 mg PO DAILY 03/25/15 Olanzapine [Zyprexa] 20 mg PO BID 03/25/15 Trazodone HCl [Desyrel -] 300 mg PO HS 03/02/16 Trazodone HCl 100 mg PO HS #30 tablet 03/03/16 Olanzapine [Zyprexa] 20 mg PO HS #30 tablet 01/19/17 Trazodone HCl [Desyrel -] 150 mg PO HS #30 tablet 01/19/17 - Diagnosis (1) Alcohol dependence with uncomplicated withdrawal Status: Acute (2) Varicose vein of leg Status: Acute (3) Essential hypertension Status: Chronic (4) Nicotine dependence Status: Chronic Qualifiers: Nicotine product type: cigarettes Substance use status: uncomplicated Qualified Code(s): F17.210 - Nicotine dependence, cigarettes, uncomplicated (5) Osteoarthritis Status: Chronic Qualifiers: Osteoarthritis location: knee Osteoarthritis type: unspecified Laterality: unspecified laterality Qualified Code(s): M17.10 - Unilateral primary osteoarthritis, unspecified knee (6) Paranoid schizophrenia Status: Chronic (7) Seizure disorder Status: Chronic - AMA Did Patient Leave Against Medical Advice: Yes
[2017-01-20] MEDS ORDERED: chlordiazePOXIDE 5 MG CAPSULE PO SCH (23:00)
[2017-01-21] MEDS ORDERED: chlordiazePOXIDE HCL 10 MG CAPSULE PO SCH (23:00)
== END 2017-01-20 17:54 | disposition left against medical advice (07) | DRG 894 ==
LOC: YASAS 16:26 → Y3N 18:19
PROVIDERS: ADMIT Internal Medicine; ATTEND Internal Medicine
PROC: HZ2ZZZZ Detoxification Services for Substance Abuse Treatment (ICD-10-PCS; principal; 2017-01-20)
DX: F10.230 Alcohol dependence with withdrawal, uncomplicated (principal); F20.0 Paranoid schizophrenia; F17.210 Nicotine dependence, cigarettes, uncomplicated; I10 Essential (primary) hypertension; I83.90 Asymptomatic varicose veins of unspecified lower extremity; M17.10 Unilateral primary osteoarthritis, unspecified knee; D64.9 Anemia, unspecified; M51.26 Other intervertebral disc displacement, lumbar region; Z86.69 Personal history of other diseases of the nervous system and sense organs
CPT/HCPCS: 36415; 80053; 80185; 81003; 85027; 86593; 93005; 93010

== ENCOUNTER 2017-11-25 10:36 | Inpatient (IN) | payer OTHER ==
[2017-11-25 11:26] VITALS: BMI 24.3
--- NOTE | 2017-11-25 13:27 | HP ---
CIWA Score - CIWA Score Nausea/Vomitin-No Nausea/No Vomiting Muscle Tremors: 2 Anxiety: 2 Agitation: 2 Paroxysmal Sweats: 2 Orientation: 0-Oriented Tacttile Disturbances: 2-Mild Itch/Numbness/Burn (left fingers) Auditory Disturbances: 1-Very Mild Visual Disturbances: 1-Very Mild Sensitivity Headache: 0-None Present CIWA-Ar Total Score: 12 Admission ROS [facility] Chief Complaint: Alcohol withdrawal sx Allergies/Adverse Reactions: Allergies Allergy/AdvReac Type Severity Reaction Status Date / Time influenza virus vaccine, Allergy Unknown passed out Verified 01/18/17 18:12 specific [Influenza Virus Vacc,Specific] pneumococcal 23-valent Allergy Unknown passed out Verified 01/18/17 18:12 polysacchari [From Pneumovax 23] haloperidol [From Haldol] AdvReac STIFFNESS Verified 01/18/17 18:12 TURKEY Allergy Severe Itching Uncoded 01/18/17 18:12 FLU SHOT Allergy Unknown passed out Uncoded 01/18/17 18:12 History of Present Illness: 57 yo male with nicotine and alcohol dependence is here seeking detox. Patient has multiple admission to [facility]. Last detox at [facility] December 2016 left AMA. Utox positive for BAR, denies use of any other substances in addition to alcohol. PMHX: HTN, seizure last episode two years go, Bipolar and Schizo. Denies suicidal or homicidal ideation. Denies visual or auditory hallucinations. Reports hx of psychiatric admission, last mission [address] [facility]. Exam Limitations: No Limitations - Ebola screening Have you traveled outside of the country in the last 21 days: No (N) Have you had contact with anyone from an Ebola affected area: No Have you been sick,other than usual withdrawal symptoms: No Do you have a fever: No - Review of Systems Constitutional: Chills, Changes in sleep, Unintentional Wgt. Loss EENT: reports: Blurred Vision (unable to recall last vision exam), Dental Problems (wears dentures currenlty missing) Respiratory: reports: No Symptoms reported Cardiac: reports: Lightheadedness GI: reports: Diarrhea, Nausea Musculoskeletal: reports: No Symptoms Reported Integumentary: reports: No Symptoms Reported Neuro: reports: See HPI Endocrine: reports: Increased Thirst Hematology: reports: Anemia Psychiatric: reports: Orientated x3, Anxious Other Systems: Reviewed and Negative Patient History - Patient Medical History Hx Anemia: Yes Hx Asthma: No Hx Chronic Obstructive Pulmonary Disease (COPD): No Hx Cancer: No Hx Cardiac Disorders: No Hx Congestive Heart Failure: No Hx Hypertension: Yes (on Norvasc) Hx Hypercholesterolemia: No Hx Pacemaker: No HX Cerebrovascular Accident: No Hx Seizures: Yes Hx Dementia: No Hx Diabetes: No Hx Gastrointestinal Disorders: No Hx Liver Disease: No Hx Genitourinary Disorders: No Hx Sexually Transmitted Disorders: No Hx Renal Disease (ESRD): No Hx Thyroid Disease: No Hx Human Immunodeficiency Virus (HIV): No (last tested a year ago) Hx Hepatitis C: No Hx Depression: Yes Hx Suicide Attempt: No Hx Bipolar Disorder: Yes Hx Schizophrenia: Yes - Patient Surgical History Past Surgical History: Yes Hx Neurologic Surgery: No Hx Cataract Extraction: No Hx Cardiac Surgery: No Hx Lung Surgery: No Hx Breast Surgery: No Hx Breast Biopsy: No Hx Abdominal Surgery: No Hx Appendectomy: No Hx Cholecystectomy: No Hx Genitourinary Surgery: No Hx Section: No Hx Orthopedic Surgery: Yes (R mandible sx in 08/08) Other Surgical History: SURGERY ON MANDIBLE IN 2013 Anesthesia Reaction: No - PPD History Previous Implant?: Yes Documented Results: Negative w/proof Implanted On Prior [facility] Admission?: Yes Date: 11/23/16 Results: 0 mm PPD to be Administered?: No - Smoking Cessation Smoking history: Current every day smoker Have you smoked in the past 12 months: Yes Aproximately how many cigarettes per day: 30 Cigars Per Day: 0 Hx Chewing Tobacco Use: No Initiated information on smoking cessation: Yes 'Breaking Loose' booklet given: 11/25/17 - Substance & Tx. History Hx Alcohol Use: Yes Hx Substance Use: Yes Substance Use Type: Alcohol Hx Substance Use Treatment: Yes ([facility] December 2016) - Substances Abused Alcohol Route: Oral Frequency: Daily Amount used: 1- 2 pints vodka Age of first use: 24 Date of Last Use: 11/25/17 Family Disease History - Family Disease History Family Disease History: Other: Mother (ETOH DEPENDENT AND STOPPED NOW) Admission Physical Exam [facility] - Vital Signs Vital Signs: Vital Signs - 24 hr 11/25/17 11:15 Temperature 98 F Pulse Rate 61 Respiratory 18 Rate Blood Pressure 160/97 - Physical General Appearance: Yes: Thin, Anxious HEENTM: Yes: EOMI, Hearing grossly Normal, Normal ENT Inspection, Pharynx Normal , Tm's normal, Other (no teeth, chelithis) Respiratory: Yes: Chest Non-Tender, Lungs Clear, Normal Breath Sounds, No Respiratory Distress, No Accessory Muscle Use Neck: Yes: No masses,lesions,Nodules, Trachea in good position Breast: Yes: Breast Exam Deferred Cardiology: Yes: Regular Rhythm, Regular Rate Abdominal: Yes: Normal Bowel Sounds, Non Tender, Flat, Soft Genitourinary: Yes: Within Normal Limits Back: Yes: Normal Inspection Musculoskeletal: Yes: full range of Motion, Gait Steady, Pelvis Stable Extremities: Yes: Normal Capillary Refill, Normal Inspection, Normal Range of Motion, Non-Tender Neurological: Yes: customer account manager II-XII NML intact, Fully Oriented, Alert, Motor Strength 5/5 Integumentary: Yes: Normal Color, Warm, Moist Lymphatic: Yes: Within Normal Limits - Diagnostic (1) Elevated blood pressure reading Current Visit: Yes Status: Acute (2) Alcohol dependence with uncomplicated withdrawal Current Visit: Yes Status: Acute (3) Varicose vein of leg Current Visit: Yes Status: Chronic (4) Essential hypertension Current Visit: Yes Status: Chronic (5) Nicotine dependence Current Visit: Yes Status: Chronic Qualifiers: Nicotine product type: cigarettes Substance use status: uncomplicated Qualified Code(s): F17.210 - Nicotine dependence, cigarettes, uncomplicated (6) Osteoarthritis Current Visit: Yes Status: Chronic Qualifiers: Osteoarthritis location: knee Osteoarthritis type: unspecified Laterality : unspecified laterality Qualified Code(s): M17.10 - Unilateral primary osteoarthritis, unspecified knee (7) Anemia Current Visit: Yes Status: Suspected Qualifiers: Anemia type: unspecified type Qualified Code(s): D64.9 - Anemia, unspecified Cleared for Admission [facility] - Detox or Rehab [facility] Level of Care: Medically Managed Detox Regimen/Protocol: Librium [facility] Breath Alcohol Content Breath Alcohol Content: 0.037 Urine Drug Screen - Results Drug Screen Negative: No Urine Drug Screen Results: BAR-Barbiturates
[2017-11-25] MEDS ORDERED: chlordiazePOXIDE HCL 25 MG CAPSULE PO PRN (13:36)
[2017-11-25] MEDS ORDERED: MAGNESIUM CITRATE 300 ML BOTTLE PO PRN (13:36)
[2017-11-25] MEDS ORDERED: hydrOXYzine PAMOATE 50 MG CAPSULE (FP) PO PRN (13:36)
[2017-11-25] MEDS ORDERED: MENTHOL/PHENOL 1 EACH UD MM PRN (13:36)
[2017-11-25] MEDS ORDERED: guaiFENesin/D-METHORPHAN HB 10 ML UNIT-DOSE CUPS PO PRN (13:36)
[2017-11-25] MEDS ORDERED: chlordiazePOXIDE HCL 25 MG CAPSULE PO ONE (13:36)
[2017-11-25] MEDS ORDERED: NICOTINE POLACRILEX 4 MG GUM BC PRN (13:36)
[2017-11-25] MEDS ORDERED: MAG HYDROX/AL HYDROX/SIMETH 30 ML UNIT-DOSE CUP PO PRN (13:36)
[2017-11-25] MEDS ORDERED: MAGNESIUM HYDROX 2400MG/30ML ORAL SUSPENSION 30 ML CUP PO PRN (13:36)
[2017-11-25] MEDS ORDERED: IBUPROFEN 400 MG TABLET (FP) PO PRN (13:36)
[2017-11-25] MEDS ORDERED: P-EPHED 60MG/TRIPROLIDI 2.5MG TABLET PO PRN (13:36)
[2017-11-25] MEDS ORDERED: ACETAMINOPHEN 325 MG TABLET (FP) PO PRN (13:36)
[2017-11-25] MEDS ORDERED: LOPERAMIDE HCL 2 MG CAPSULE PO PRN (13:36)
[2017-11-25] MEDS: amLODIPine BESYLATE 10 MG TABLET (FP) PO SCH (15:35)
[2017-11-25] MEDS: chlordiazePOXIDE HCL 25 MG CAPSULE PO SCH ×2 (17:56→22:20)
[2017-11-25 20:04] LABS: URINE APPEARANCE CLEAR; URINE BILIRUBIN NEGATIVE (<2.0 mg/dL); URINE BLOOD NEGATIVE (NEGATIVE); URINE COLOR YELLOW; URINE GLUCOSE (UA) NEGATIVE (NEGATIVE); URINE KETONE NEGATIVE (NEGATIVE); URINE LEUK ESTERASE NEGATIVE (NEGATIVE); URINE NITRITE NEGATIVE (NEGATIVE); URINE PROTEIN NEGATIVE (NEGATIVE)
[2017-11-25] MEDS ORDERED: THIAMINE HCL 100 MG TABLET (FP) PO SCH (22:00)
[2017-11-25] MEDS ORDERED: MELATONIN 5 MG TABLETS PO PRN (22:00)
[2017-11-26] MEDS: chlordiazePOXIDE HCL 25 MG CAPSULE PO SCH (05:11)
[2017-11-26 06:16] VITALS: BP 134/82; PULSE 50; TEMP 97.9
[2017-11-26] MEDS: amLODIPine BESYLATE 10 MG TABLET (FP) PO SCH (09:30)
--- NOTE | 2017-11-26 09:34 | CONSULT ---
[facility] Psychiatric Consult - Data Date of interview: 11/26/17 Admission source: [facility] Identifying data: This is 57 years old male, single, living with roommate, unemployed , with no PA support, with history of Bipoloar Disorder and Schizophrenia, with history of psychiatric hospitalizations, with nicotine and alcohol dependence is here seeking detox. As per computer abusing PCP and Barbiturates as well. Substance Abuse History: - Smoking Cessation. Smoking history: Current every day smoker. Have you smoked in the past 12 months: Yes. Aproximately how many cigarettes per day: 30. Cigars Per Day: 0. Hx Chewing Tobacco Use: No. Initiated information on smoking cessation: Yes. 'Breaking Loose' booklet given : 11/25/17. - Substance & Tx. History. Hx Alcohol Use: Yes. Hx Substance Use : Yes. Substance Use Type: Alcohol. Hx Substance Use Treatment: Yes ([facility] December 2016). - Substances Abused. Alcohol. Route: Oral. Frequency: Daily. Amount used: 1- 2 pints vodka. Age of first use: 24. Date of Last Use: 11/25 Medical History: Anemia history, HTN, Osteoarthritis, Vroacose veins of lower extremities. Psychiatric History: Patient reports history of Bipolar disorder, as per computer history of Schizophrenia as well, with most recent psychiatric hospitalization on about 10 years ago, reports currently taking: Zyprexa 20mg po bid. Trazodone 300mg po qhs Physical/Sexual Abuse/Trauma History: Denies Additional Comment: Zyprexa 20mg po bid. Trazodone 300mg po qhs Mental Status Exam - Mental Status Exam Alert and Oriented to: Person Cognitive Function: Fair Patient Appearance: Unkempt Mood: Sad Affect: Flat Patient Behavior: Guarded Speech Pattern: Delayed Voice Loudness: Mildly Soft/Quiet Thought Process: Circumstantial Thought Disorder: Being Controlled Hallucinations: Denies Suicidal Ideation: Denies Homicidal Ideation: Denies Insight/Judgement: Fair Sleep: Difficulty falling asleep Appetite: Fair Muscle strength/Tone: Mild Hypotonicity Gait/Station: Shuffling Additional Comments: Zyprexa 20mg po bid. Trazodone 300mg po qhs Psychiatric Findings - Problem List ([place] 1, 2,3) (1) Alcohol dependence with uncomplicated withdrawal Current Visit: Yes Status: Acute (2) Nicotine dependence Current Visit: Yes Status: Chronic Qualifiers: Nicotine product type: cigarettes Substance use status: uncomplicated Qualified Code(s): F17.210 - Nicotine dependence, cigarettes, uncomplicated (3) PCP dependence Current Visit: No Status: Acute (4) Non compliance w medication regimen Current Visit: No Status: Chronic (5) Paranoid schizophrenia Current Visit: No Status: Chronic (6) Drug-induced mood disorder Current Visit: No Status: Suspected - Initial Treatment Plan Initial Treatment Plan: Zyprexa 10mg po bid. Trazodone 300mg po qhs
[2017-11-26] MEDS ORDERED: OLANZapine 10 MG TABLET PO SCH (10:00)
[2017-11-26] MEDS ORDERED: OLANZAPINE 20 MG PO SCH (10:00)
[2017-11-26] MEDS ORDERED: NICOTINE 21 MG/24 HOURS TOPICAL PATCH TD SCH (10:00)
[2017-11-26] MEDS ORDERED: PRENATAL VITAMINS W/ FOLIC ACID TABLET (FP) PO SCH (10:00)
[2017-11-26 10:35] LABS: HEMATOCRIT 39.1 % (35.4-49); MCH 30.8 pg (25.7-33.7); MCHC 33.1 g/dl (32.0-35.9); MEAN CELL VOLUME 92.9 fl (80-96); MEAN PLT VOLUME 10.5 fl (7.5-11.1); PLATELET COUNT 205 K/MM3 (134-434); RBC 4.21 M/mm3 (4.00-5.60); RDW 14.2 % (11.9-15.9); WHITE BLOOD COUNT 3.9 K/mm3 (4.0-10.0)
[2017-11-26 10:43] LABS: CHLORIDE 106 mmol/L (98-107); POTASSIUM 4.5 mmol/L (3.5-5.1); SODIUM 139 mmol/L (136-145)
[2017-11-26 11:09] LABS: ALK PHOS 88 U/L (45-117); ANION GAP 4 (8-16); BILIRUBIN,TOTAL 0.4 mg/dL (0.2-1.0); BLOOD UREA NITROGEN 18 mg/dL (7-18); CALCIUM 9.2 mg/dL (8.5-10.1); CO2 29 mmol/L (21-32); CREATININE 1.2 mg/dL (0.7-1.3); GLUCOSE,RANDOM 93 mg/dL (74-106); SGOT/AST 33 U/L (15-37); SGPT/ALT 39 U/L (12-78); TOT PROT 7.6 g/dl (6.4-8.2)
--- NOTE | 2017-11-26 11:26 | EKG ---
Test Reason : Blood Pressure : / mmHG Vent. Rate : 055 BPM Atrial Rate : 055 BPM P-R Int : 156 ms QRS Dur : 094 ms QT Int : 434 ms P-R-T Axes : 063 034 057 degrees QTc Int : 415 ms SINUS BRADYCARDIA VOLTAGE CRITERIA FOR LEFT VENTRICULAR HYPERTROPHY ABNORMAL ECG WHEN COMPARED WITH ECG OF 18-JAN-2017 21:06, NO SIGNIFICANT CHANGE WAS FOUND Confirmed by SB HERNANDEZ MD ([id number]) on 11/26/2017 11:26:22 AM Referred By: Confirmed By:SB HERNANDEZ MD
--- NOTE | 2017-11-26 11:47 | DS ---
[facility] Detox Discharge Summary Admission Date: 11/25/17 Discharge Date: 11/26/17 - History Present History: Alcohol Dependence Additional Comments: 57 years old male with long history of alcohol dependence admitted 11/25/17 insists to terminate alcohol detox regimen due to "keep checking my blood pressure" improve client services that the patient wants medication and meal served in room and meeting and counselor interview to be conduct in patient's room health teaching on immobility adverse health issues discuss healthy life style and dietary balance - Physical Exam Results Vital Signs: Vital Signs Temperature 97.9 F 11/26/17 06:16 Pulse Rate 50 L 11/26/17 06:16 Respiratory Rate 16 11/26/17 06:16 Blood Pressure 134/82 11/26/17 06:16 O2 Sat by Pulse Oximetry (%) Pertinent Admission Physical Exam Findings: alcohol withdrawal sx Vital Signs Temperature 97.9 F 11/26/17 06:16 Pulse Rate 50 L 11/26/17 06:16 Respiratory Rate 16 11/26/17 06:16 Blood Pressure 134/82 11/26/17 06:16 O2 Sat by Pulse Oximetry (%) Laboratory Last Values WBC 3.9 K/mm3 (4.0-10.0) L 11/26/17 07:00 RBC 4.21 M/mm3 (4.00-5.60) 11/26/17 07:00 Hgb 13.0 GM/dL (11.7-16.9) 11/26/17 07:00 Hct 39.1 % (35.4-49) 11/26/17 07:00 MCV 92.9 fl (80-96) 11/26/17 07:00 MCH 30.8 pg (25.7-33.7) 11/26/17 07:00 MCHC 33.1 g/dl (32.0-35.9) 11/26/17 07:00 RDW 14.2 % (11.9-15.9) D 11/26/17 07:00 Plt Count 205 K/MM3 (134-434) 11/26/17 07:00 MPV 10.5 fl (7.5-11.1) 11/26/17 07:00 Sodium 139 mmol/L (136-145) 11/26/17 07:00 Potassium 4.5 mmol/L (3.5-5.1) 11/26/17 07:00 Chloride 106 mmol/L (98-107) 11/26/17 07:00 Carbon Dioxide 29 mmol/L (21-32) 11/26/17 07:00 Anion Gap 4 (8-16) L 11/26/17 07:00 BUN 18 mg/dL (7-18) 11/26/17 07:00 Creatinine 1.2 mg/dL (0.7-1.3) 11/26/17 07:00 Creat Clearance w eGFR > 60 (>60) 11/26/17 07:00 Random Glucose 93 mg/dL (74-106) 11/26/17 07:00 Calcium 9.2 mg/dL (8.5-10.1) 11/26/17 07:00 Total Bilirubin 0.4 mg/dL (0.2-1.0) 11/26/17 07:00 AST 33 U/L (15-37) D 11/26/17 07:00 ALT 39 U/L (12-78) D 11/26/17 07:00 Alkaline Phosphatase 88 U/L (45-117) 11/26/17 07:00 Total Protein 7.6 g/dl (6.4-8.2) 11/26/17 07:00 Albumin 4.0 g/dl (3.4-5.0) 11/26/17 07:00 Urine Color Yellow 11/25/17 15:50 Urine Appearance Clear 11/25/17 15:50 Urine pH 5.0 (5.0-8.0) 11/25/17 15:50 Ur Specific [place] 1.026 (1.001-1.035) 11/25/17 15:50 Urine Protein Negative (NEGATIVE) 11/25/17 15:50 Urine Glucose (UA) Negative (NEGATIVE) 11/25/17 15:50 Urine Ketones Negative (NEGATIVE) 11/25/17 15:50 Urine Blood Negative (NEGATIVE) 11/25/17 15:50 Urine Nitrite Negative (NEGATIVE) 11/25/17 15:50 Urine Bilirubin Negative (<2.0 mg/dL) 11/25/17 15:50 Urine Urobilinogen 2.0 mg/dL (0.2-1.0) 11/25/17 15:50 Ur Leukocyte Esterase Negative (NEGATIVE) 11/25/17 15:50 RPR Titer Nonreactive (NONREACTIVE) 11/26/17 07:00 lab noted - Treatment Hospital Course: Detox Protocol Followed, Responded well Patient has Accepted a Rehab Referral to: community self help meetings - Medication Discharge Medications: Ambulatory Orders Phenytoin Na Extended [Dilantin -] 100 mg PO TID 08/03/14 Amlodipine Besylate [Norvasc -] 10 mg PO DAILY 03/25/15 Olanzapine [Zyprexa] 20 mg PO BID 03/25/15 Oxycodone HCl 30 mg PO Q4H 11/25/17 Trazodone HCl 300 mg PO HS 11/25/17 Olanzapine [ZyPREXA -] 10 mg PO BID #60 tablet 11/26/17 traZODone HCL [Desyrel -] 300 mg PO HS #60 tablet 11/26/17 - Diagnosis (1) Alcohol dependence with uncomplicated withdrawal Status: Acute (2) Essential hypertension Status: Chronic - AMA Did Patient Leave Against Medical Advice: Yes
[2017-11-26] MEDS ORDERED: chlordiazePOXIDE HCL 25 MG CAPSULE PO SCH (17:00)
[2017-11-26] MEDS ORDERED: traZODone HCL 100 MG TABLET (FP) PO SCH (22:00)
[2017-11-27] MEDS ORDERED: chlordiazePOXIDE 5 MG CAPSULE PO SCH (17:00)
[2017-11-28] MEDS ORDERED: chlordiazePOXIDE HCL 10 MG CAPSULE PO SCH (17:00)
== END 2017-11-26 10:00 | disposition left against medical advice (07) | DRG 894 ==
LOC: YASAS 10:36 → Y6N 14:40
PROVIDERS: ADMIT Surgery; ATTEND Surgery
PROC: HZ2ZZZZ Detoxification Services for Substance Abuse Treatment (ICD-10-PCS; principal; 2017-11-25)
DX: F10.230 Alcohol dependence with withdrawal, uncomplicated (principal); F20.0 Paranoid schizophrenia; F19.24 Other psychoactive substance dependence with psychoactive substance-induced mood disorder; I10 Essential (primary) hypertension; D64.9 Anemia, unspecified; M17.10 Unilateral primary osteoarthritis, unspecified knee; I83.90 Asymptomatic varicose veins of unspecified lower extremity; Z86.69 Personal history of other diseases of the nervous system and sense organs; Z91.14 Patient's other noncompliance with medication regimen
CPT/HCPCS: 36415; 80053; 81003; 85027; 86593; 87389; 93005; 93010